=== PATIENT | male | born 2000 | race Caucasian/White ===

== ENCOUNTER 2022-06-20 08:40 | Emergency (ER) | payer BC ==
[2022-06-20] MEDS ORDERED: Ibuprofen 200 MG TAB ONE (11:17)
== END 2022-06-20 11:50 | disposition home or self-care (01) ==
LOC: CSHERS 08:40
DX: S06.9X9A Unspecified intracranial injury with loss of consciousness of unspecified duration, initial encounter (principal); S82.831A Other fracture of upper and lower end of right fibula, initial encounter for closed fracture; W20.8XXA Other cause of strike by thrown, projected or falling object, initial encounter
CPT/HCPCS: 29515; 70450; 72125